=== PATIENT | male | born 1955 | race African-American/Black ===

== ENCOUNTER 2019-04-24 16:35 | Inpatient (IN) | payer MEDICAID ==
[~2019-04-24] VITALS: Ht 180.3 cm; Wt 88.9 kg
--- NOTE | 2019-04-24 16:57 | NUR ---
BREAK RN: PT BIB EMS FROM [facility] AFTER PT PRESENTED WITH C/O WEAKNESS X4 DAYS AND DECREASED APPETITE X2, BLOOD SUGAR 58 ORIGINALLY, GIVEN GLUCOGAN AND A SANDWICH BRINGING LAST SUGAR TO 134. 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 IV IN PLACE ON ARRIVAL. CONNECTED TO ALL MONITORING, SLIGHTLY RAPID BREATHING WITH MOVEMENT, OTHER VSS. EKG DONE ON ARRIVAL, MD AWARE. CALL LIGHT WITHIN REACH. AWAITING ORDERS AT THIS TIME. REPORT GIVEN TO KAMALJIT RIVERS
[2019-04-24] MEDS ORDERED: METOPROLOL ER (17:12)
[2019-04-24] MEDS ORDERED: METFORMIN (17:12)
[2019-04-24] MEDS ORDERED: NITR0.4T28 SL (17:12)
[2019-04-24] MEDS ORDERED: MIRT15TA3 PO (17:12)
[2019-04-24] MEDS ORDERED: PANT40TA5 PO (17:12)
[2019-04-24] MEDS ORDERED: POTA8CAP20 PO (17:12)
[2019-04-24] MEDS ORDERED: HYDROCHLOROTHIAZIDE PO (17:12)
[2019-04-24] MEDS ORDERED: ATOR-2 PO (17:12)
[2019-04-24] MEDS ORDERED: HYDR-36 PO (17:12)
[2019-04-24] MEDS ORDERED: ROSU20TA2 PO (17:12)
[2019-04-24] MEDS ORDERED: LOSA50TA14 PO (17:12)
[2019-04-24] MEDS ORDERED: TAMS-11 PO (17:12)
[2019-04-24] MEDS ORDERED: SPIR25TA5 PO (17:12)
[2019-04-24] MEDS ORDERED: LASIX (17:13)
--- NOTE | 2019-04-24 18:03 | NUR ---
PER MASON FROM LAB, CRITICAL TROP OF 0.331, UPDATED
--- NOTE | 2019-04-24 18:05 | NUR ---
LAB CALLED TO FOLLOW UP ON DELAY OF DRAW, THEY SAID THEY ARE ON THE WAY RIGHT NOW
[2019-04-24 18:24] LABS: ALBUMIN 3.5 g/dL (3.4-5.0); ANION GAP 4 mmol/L (5-15); CALCIUM 8.8 mg/dL (8.5-10.1); CHLORIDE 110 mmol/L (98-107); CREATININE 1.55 mg/dL (0.7-1.3)
[2019-04-24 18:31] LABS: TROPONIN I 0.331 ng/mL (0.000-0.045)
--- NOTE | 2019-04-24 19:56 | NUR ---
HOSPITALIST AT BEDSIDE TO ADMIT PT
[2019-04-24 20:18] VITALS: BP 133/87
[2019-04-24] MEDS ORDERED: METF-649 PO (20:28)
[2019-04-24] MEDS ORDERED: ASPI-496 PO (20:31)
[2019-04-24] MEDS ORDERED: OMEG1CAP6 PO (20:33)
[2019-04-24] MEDS ORDERED: morphine SULFATE 10 MG/ML, 1ML IVPush PRN (21:00)
[2019-04-24] MEDS ORDERED: NITROGLYCERIN 0.4 MG BOTTLE (25 TABS) SL PRN (21:00)
[2019-04-24] MEDS ORDERED: ACETAMINOPHEN 325 MG TABLET PO PRN (21:00)
[2019-04-24] MEDS ORDERED: BISACODYL 10 MG SUPP PR PRN (21:00)
[2019-04-24] MEDS ORDERED: POLYETHYLENE GLYCOL 17 GM PACKET PO PRN (21:00)
[2019-04-24] MEDS ORDERED: ONDANSETRON ODT 4 MG PO PRN (21:00)
[2019-04-24] MEDS ORDERED: MIRTAZAPINE 15 MG TABLET PO SCH (23:00)
[2019-04-24 23:38] VITALS: BP 125/86
[2019-04-24] MEDS: TAMSULOSIN 0.4 MG CAP.ER.24H PO SCH (23:40)
[2019-04-24] MEDS: METOPROLOL TARTRATE 25 MG TABLET PO SCH (23:41)
[2019-04-24] MEDS: PANTOPROZOLE 40MG TABLET PO SCH (23:41)
[2019-04-24] MEDS: ATORVASTATIN 40 MG TABLET PO SCH (23:49)
[2019-04-24] MEDS: SODIUM CHLORIDE FLUSH 10ML SYR IVF SCH (23:49)
[2019-04-25 00:39] LABS: TROPONIN I 0.286 ng/mL (0.000-0.045)
[2019-04-25 00:58] VITALS: BP 115/77
[2019-04-25] MEDS: ASPIRIN 81 MG TABLET EC PO SCH (05:41)
[2019-04-25 07:07] LABS: BASOPHILS # (AUTO) 0.01 x10^3/uL (0-0.1); BASOPHILS % (AUTO) 0 % (0-1); EOSINOPHILS # (AUTO) 0.07 x10^3/uL (0-0.4); EOSINOPHILS % (AUTO) 1 % (1-7); LYMPHOCYTES # (AUTO) 1.19 x10^3/uL (1-3.4); LYMPHOCYTES % (AUTO) 15 % (22-44); MD NO; MEAN CORPUSCULAR HEMOGLOBIN 32.2 pg (27.5-34.5); MEAN CORPUSCULAR VOLUME 100.8 fL (81-97); MEAN PLATELET VOLUME 11.9 fL (7.4-10.4); MONOCYTES # (AUTO) 0.46 x10^3/uL (0.2-0.8); MONOCYTES % (AUTO) 6 % (2-9); NEUTROPHILS # (AUTO) 6.22 x10^3/uL (1.8-6.8); NEUTROPHILS % (AUTO) 78 % (42-75); PLATELET COUNT 129 x10^3/uL (130-400); RED BLOOD COUNT 4.76 x10^6/uL (4.38-5.82)
[2019-04-25 07:14] LABS: ALBUMIN 3.3 g/dL (3.4-5.0); ANION GAP 9 mmol/L (5-15); CALCIUM 8.6 mg/dL (8.5-10.1); CHLORIDE 111 mmol/L (98-107)
[2019-04-25 07:20] LABS: ALANINE AMINOTRANSFERASE 32 U/L (12-78); ALKALINE PHOSPHATASE 93 U/L (45-117); BILIRUBIN,TOTAL 1.4 mg/dL (0.2-1.0); CHOLESTEROL, TOTAL 139 mg/dL (140-239); CREATININE 1.53 mg/dL (0.7-1.3); HDL CHOL % 20 % (26-37); HDL CHOLESTEROL (DIRECT) 28 mg/dL (40-60); LDL CHOLESTEROL,CALCULATED 92 mg/dL (54-169); LDL/HDL RATIO 3.3 (0.5-3.0); TOTAL PROTEIN 7.2 g/dL (6.4-8.2); TRIGLYCERIDES 95 mg/dL (50-200); TROPONIN I 0.208 ng/mL (0.000-0.045); VLDL CHOLESTEROL 19 mg/dL (0-25)
[2019-04-25] MEDS: HEPARIN 5,000 UNITS/ML, 1ML SQ SCH ×2 (08:00→14:17)
[2019-04-25] MEDS: SODIUM CHLORIDE FLUSH 10ML SYR IVF SCH ×2 (08:00→21:20)
[2019-04-25] MEDS ORDERED: REGADENOSON 0.4 MG/5 ML SYRINGE ONE (08:22)
[2019-04-25 08:47] VITALS: BP 117/83
[2019-04-25] MEDS: SENNA/DOCUSATE TABLET PO SCH (09:00)
[2019-04-25] MEDS: METOPROLOL TARTRATE 25 MG TABLET PO SCH ×2 (10:31→21:10)
[2019-04-25] MEDS: HYDROcodone/APAP 10/325 MG TABLET PO SCH ×2 (10:31→21:10)
[2019-04-25] MEDS: SPIRONOLACTONE 25 MG TABLET PO SCH (14:16)
[2019-04-25] MEDS: LOSARTAN 50MG TABLET PO SCH (14:16)
[2019-04-25] MEDS: FUROSEMIDE 40 MG TABLET PO SCH (14:16)
[2019-04-25 15:16] VITALS: BP 111/73
[2019-04-25 18:54] VITALS: BP 116/69
[2019-04-25] MEDS: PANTOPROZOLE 40MG TABLET PO SCH (21:09)
[2019-04-25] MEDS: CITALOPRAM 20 MG TABLET PO SCH (21:09)
[2019-04-25] MEDS: TAMSULOSIN 0.4 MG CAP.ER.24H PO SCH (21:10)
[2019-04-25] MEDS: MIRTAZAPINE 15 MG TABLET PO SCH (21:10)
[2019-04-25] MEDS: RISPERIDONE 1 MG TABLET PO SCH (21:10)
[2019-04-25] MEDS: ATORVASTATIN 40 MG TABLET PO SCH (21:20)
[2019-04-26] MEDS: HEPARIN 5,000 UNITS/ML, 1ML SQ SCH ×3 (00:36→18:33)
[2019-04-26 01:21] VITALS: BP 118/76
[2019-04-26 05:25] VITALS: BP 119/85
[2019-04-26] MEDS: ASPIRIN 81 MG TABLET EC PO SCH (05:36)
[2019-04-26 05:51] LABS: CHLORIDE 109 mmol/L (98-107)
[2019-04-26 06:01] LABS: ANION GAP 7 mmol/L (5-15); CALCIUM 8.3 mg/dL (8.5-10.1); CREATININE 1.59 mg/dL (0.7-1.3); PREALBUMIN 12.2 mg/dL (20.0-40.0)
[2019-04-26 06:06] LABS: BASOPHILS # (AUTO) 0.02 x10^3/uL (0-0.1); BASOPHILS % (AUTO) 0 % (0-1); EOSINOPHILS # (AUTO) 0.05 x10^3/uL (0-0.4); EOSINOPHILS % (AUTO) 1 % (1-7); LYMPHOCYTES # (AUTO) 1.06 x10^3/uL (1-3.4); LYMPHOCYTES % (AUTO) 13 % (22-44); MD NO; MEAN CORPUSCULAR HGB CONC 32.5 g/dL (33.2-36.2); MEAN CORPUSCULAR VOLUME 98.2 fL (81-97); MEAN PLATELET VOLUME 11.9 fL (7.4-10.4); MONOCYTES % (AUTO) 9 % (2-9); NEUTROPHILS # (AUTO) 6.24 x10^3/uL (1.8-6.8); NEUTROPHILS % (AUTO) 77 % (42-75); PLATELET COUNT 125 x10^3/uL (130-400); RED CELL DISTRIBUTION WIDTH 15.6 % (9.4-14.8)
[2019-04-26 06:46] VITALS: BP 115/76
[2019-04-26] MEDS: SENNA/DOCUSATE TABLET PO SCH (09:00)
[2019-04-26 10:17] VITALS: BP 133/88
[2019-04-26] MEDS: CITALOPRAM 20 MG TABLET PO SCH (10:24)
[2019-04-26] MEDS: FUROSEMIDE 40 MG TABLET PO SCH (10:24)
[2019-04-26] MEDS: SPIRONOLACTONE 25 MG TABLET PO SCH (10:25)
[2019-04-26] MEDS: LOSARTAN 50MG TABLET PO SCH (10:25)
[2019-04-26] MEDS: HYDROcodone/APAP 10/325 MG TABLET PO SCH ×2 (10:25→22:27)
[2019-04-26] MEDS: METOPROLOL SUCCINATE 100 MG TAB.ER.24H PO SCH (10:25)
[2019-04-26] MEDS: SODIUM CHLORIDE FLUSH 10ML SYR IVF SCH ×2 (10:27→22:20)
[2019-04-26] MEDS ORDERED: FUROSEMIDE 40 MG/4 ML IV ONE (11:00)
[2019-04-26 15:56] VITALS: BP 111/81
[2019-04-26 18:43] VITALS: BP 109/76
[2019-04-26] MEDS: MIRTAZAPINE 15 MG TABLET PO SCH (22:19)
[2019-04-26] MEDS: RISPERIDONE 1 MG TABLET PO SCH (22:19)
[2019-04-26] MEDS: TAMSULOSIN 0.4 MG CAP.ER.24H PO SCH (22:19)
[2019-04-26] MEDS: ATORVASTATIN 40 MG TABLET PO SCH (22:19)
[2019-04-26] MEDS: PANTOPROZOLE 40MG TABLET PO SCH (22:19)
[2019-04-27 00:54] VITALS: BP 98/73
[2019-04-27] MEDS: HEPARIN 5,000 UNITS/ML, 1ML SQ SCH ×2 (03:02→06:19)
[2019-04-27 05:52] LABS: ANION GAP 6 mmol/L (5-15); CALCIUM 8.4 mg/dL (8.5-10.1); CHLORIDE 108 mmol/L (98-107); CREATININE 1.74 mg/dL (0.7-1.3)
[2019-04-27] MEDS: METOPROLOL SUCCINATE 100 MG TAB.ER.24H PO SCH (06:19)
[2019-04-27] MEDS: ASPIRIN 81 MG TABLET EC PO SCH (06:19)
[2019-04-27 07:02] VITALS: BP 124/81
[2019-04-27] MEDS: SENNA/DOCUSATE TABLET PO SCH (07:52)
[2019-04-27] MEDS: SPIRONOLACTONE 25 MG TABLET PO SCH (08:38)
[2019-04-27] MEDS: FUROSEMIDE 40 MG TABLET PO SCH (08:38)
[2019-04-27] MEDS: CITALOPRAM 20 MG TABLET PO SCH (08:38)
[2019-04-27] MEDS: HYDROcodone/APAP 10/325 MG TABLET PO SCH ×2 (08:39→20:31)
[2019-04-27] MEDS: SODIUM CHLORIDE FLUSH 10ML SYR IVF SCH ×2 (08:39→20:32)
[2019-04-27] MEDS: LOSARTAN 50MG TABLET PO SCH (08:39)
[2019-04-27] MEDS: AMIODARONE 200 MG TABLET PO SCH ×2 (10:53→20:32)
[2019-04-27] MEDS ORDERED: MAGNESIUM SULFATE PMX 2GM/50ML 50 ML IV ONE (15:00)
[2019-04-27 15:06] VITALS: BP 96/79
[2019-04-27 18:43] VITALS: BP 105/72
[2019-04-27] MEDS: PANTOPROZOLE 40MG TABLET PO SCH (20:31)
[2019-04-27] MEDS: ATORVASTATIN 40 MG TABLET PO SCH (20:31)
[2019-04-27] MEDS: MIRTAZAPINE 15 MG TABLET PO SCH (20:31)
[2019-04-27] MEDS: APIXABAN 5 MG TABLET PO SCH (20:31)
[2019-04-27] MEDS: RISPERIDONE 1 MG TABLET PO SCH (20:32)
[2019-04-27] MEDS: TAMSULOSIN 0.4 MG CAP.ER.24H PO SCH (20:32)
[2019-04-28 01:09] VITALS: BP 99/68
[2019-04-28 02:03] LABS: MICROSCOPIC NOT IND
[2019-04-28 02:05] LABS: CULTURE INDICATED? NO
[2019-04-28] MEDS: ASPIRIN 81 MG TABLET EC PO SCH (05:29)
[2019-04-28] MEDS: METOPROLOL SUCCINATE 100 MG TAB.ER.24H PO SCH (05:29)
[2019-04-28 06:02] LABS: ANION GAP 7 mmol/L (5-15); CALCIUM 8.4 mg/dL (8.5-10.1); CHLORIDE 108 mmol/L (98-107); CREATININE 1.63 mg/dL (0.7-1.3)
[2019-04-28 08:50] VITALS: BP 112/79
[2019-04-28] MEDS: HYDROcodone/APAP 10/325 MG TABLET PO SCH (08:58)
[2019-04-28] MEDS: AMIODARONE 200 MG TABLET PO SCH (08:58)
[2019-04-28] MEDS: CITALOPRAM 20 MG TABLET PO SCH (08:58)
[2019-04-28] MEDS: APIXABAN 5 MG TABLET PO SCH (08:58)
[2019-04-28] MEDS: LOSARTAN 50MG TABLET PO SCH (08:59)
[2019-04-28] MEDS: FUROSEMIDE 40 MG TABLET PO SCH (08:59)
[2019-04-28] MEDS: SODIUM CHLORIDE FLUSH 10ML SYR IVF SCH (08:59)
[2019-04-28] MEDS: SPIRONOLACTONE 25 MG TABLET PO SCH (08:59)
[2019-04-28] MEDS: SENNA/DOCUSATE TABLET PO SCH (09:00)
[2019-04-28] MEDS ORDERED: AMIO200T42 PO (09:42)
[2019-04-28] MEDS ORDERED: APIX5TAB PO (09:42)
== END 2019-04-28 15:45 | disposition home or self-care (01) | DRG 190 ==
LOC: ED 17:06 → EDIP 18:33 → 5SO 20:03
PROVIDERS: ADMIT Family Medicine; ATTEND Internal Medicine
DX: I21.4 Non-ST elevation (NSTEMI) myocardial infarction (principal); I47.2 Ventricular tachycardia; I50.23 Acute on chronic systolic (congestive) heart failure; E46 Unspecified protein-calorie malnutrition; I42.9 Cardiomyopathy, unspecified; E11.9 Type 2 diabetes mellitus without complications; I11.0 Hypertensive heart disease with heart failure; Z68.27 Body mass index [BMI] 27.0-27.9, adult; E78.5 Hyperlipidemia, unspecified; I51.3 Intracardiac thrombosis, not elsewhere classified; N28.9 Disorder of kidney and ureter, unspecified; Z66 Do not resuscitate; Z82.49 Family history of ischemic heart disease and other diseases of the circulatory system; Z85.46 Personal history of malignant neoplasm of prostate; Z87.891 Personal history of nicotine dependence
CPT/HCPCS: 36415; 71045; 78452; 80048; 80053; 80061; 81003; 82040; 83735; 84100; 84134; 84484; 85025; 93005; 93017; 93306; G0378; J1644; J1940; J2785; A9502; J2270; J3475